=== PATIENT | female | born 1955 ===

== ENCOUNTER → 2025-09-21 11:18 | Outpatient (BNV) | payer OTHER, SELFPAY | PROVIDERS: Emergency Provider Emergency Medicine; PCP Pediatrics; Visit Provider Radiology Diagnostic Radiology | DX: R07.9 Chest pain, unspecified (principal); R06.02 Shortness of breath | CPT/HCPCS: 71046 ==

== ENCOUNTER 2025-09-21 11:47 | Emergency (ER) | payer OTHER, SELFPAY ==
--- NOTE | 2025-09-21 | ECG_ITS ---
Test Reason : chest pain Blood Pressure : */* mmHG Vent. Rate : 50 BPM Atrial Rate : 50 BPM P-R Int : 120 ms QRS Dur : 70 ms QT Int : 448 ms P-R-T Axes : 68 43 52 degrees QTcB Int : 408 ms Sinus bradycardia with sinus arrhythmia Otherwise normal ECG No previous ECGs available Referred By: Generic ED Physician Electronically Signed By: MARIALUISA BENITEZ MD
--- NOTE | ~2025-09-21 | XR_ITS ---
EXAMINATION: XR CHEST CLINICAL INFORMATION: chest pain, SOB COMPARISON: None available. TECHNIQUE: 2 views of the chest were obtained. FINDINGS: There is linear scarring or subsegmental atelectasis at the left lung base. Lungs are otherwise clear. No consolidation or pulmonary edema. No pleural effusion or pneumothorax. Cardiac and mediastinal contours are normal. Degenerative changes of the spine and shoulders. XR/XR chest 2V IMPRESSION: Linear subsegmental atelectasis or scarring at the left lung base. Electronically signed by: Keely Hunt MD 09/21/2025 12:28 PM VIVEK
[2025-09-21 11:54] VITALS: BP 130/75; PULSE 66; O2SAT 96
[2025-09-21 11:56] VITALS: BP 150/64; PULSE 56; RESP 18; TEMP 37; O2SAT 95; BMI 24.1
[2025-09-21 12:17] LABS: MANUAL DIFF FLAG NO
[2025-09-21 12:18] LABS: Hematocrit 41.0 % (37.0-47.0); Hemoglobin 13.7 g/dl (12.0-16.0); Imm Gran Abs Auto 0.01 X10*3/uL (0.00-0.03); Imm Gran Pct Auto 0.2 % (0.0-0.4); Lymphocytes Absolute Auto 1.1 X10*3/uL (1.2-4.9); Mean Corpuscular HGB Conc 33.4 g/dl (31.0-35.0); Mean Corpuscular Hemoglobin 30.9 pg (27.0-33.0); Mean Corpuscular Volume 92.3 fL (80.0-98.0); NRBC Abs Auto 0.000 X10*3/uL (0.0-0.012); NRBC Pct Auto 0.0 /100WBC (0.0-0.2); Platelet Count 243 X10*3/uL (160-400); Red Blood Count 4.44 X10*6/uL (4.20-5.50); White Blood Count 5.6 X10*3/uL (4.8-10.8)
[2025-09-21 12:24] LABS: INTERNATIONAL NORM RATIO 1.0 (0.9-1.1); Prothrombin Time 12.8 SEC (11.2-13.5)
[2025-09-21 12:31] LABS: Anion Gap 11 (12-20); Blood Urea Nitrogen 16 mg/dL (9-16); Calcium 9.1 mg/dL (8.4-10.2); Carbon Dioxide 28 mmol/L (22-29); Chloride 107 mmol/L (96-108); Creatinine Clr Calc Pharmacy 71.3; Estimated Glomerular Filt Rate > 60; Potassium 4.7 mmol/L (3.3-5.1); Sodium 141 mmol/L (135-145)
[2025-09-21 12:43] LABS: Troponin-I High Sensitivity < 2.7 ng/L (<3.5-17.0)
--- NOTE | 2025-09-21 13:58 | ED.CHESTPAIN ---
HPI - Chest Pain General Chief Complaint: Chest Pain Stated Complaint: R CP W/BREATHING X2D,ASA & NITRO GIVEN Time Seen by Provider: 09/21/25 12:08 Source: patient, EMS, RN notes reviewed and old records reviewed Mode of arrival: EMS Limitations: language barrier (Brazilian-speaking) History of Present Illness ED Provider: JV Hooper HPI narrative: 69-year-old female with medical history of HLD, HTN, [place] with stent placement at [facility] presents to ED by EMS due to right sided chest pain after a flat screen TV fell onto the R side of her chest 5 days ago. Patient states she was able to let the TV fall to the side so it did not fall on top of her/crush her, but did hit the right side of her chest very hard. Patient stated she noticed some chest pain in this area after but the chest pain is now worse and she has pain when raising the right arm up, and when taking a deep breath in around the area of impact. Denies SOB, difficulty breathing, abdominal pain, nausea, vomiting, lightheadedness, dizziness Related Data Allergies Allergy/AdvReac Type Severity Reaction Status Date / Time Bleach (Sodium Hypochlorite) AdvReac Intermediate Itching Verified 09/21/25 12:05 Review of Systems Review of Systems: Yes all other systems are reviewed and are negative PMFSH Past Medical History Attestation statement: The following information was validated with the patient. Source: old records reviewed and nursing notes reviewed Social History Social History Advance Directives: No Advance Directives Information Provided: Yes Physical Exam Vital Signs: Vital Signs: Last Vital Signs Temp 98.6 F 09/21/25 15:39 Pulse 69 09/21/25 15:39 Resp 17 09/21/25 15:39 BP 163/76 H 09/21/25 15:39 Pulse Ox 96 09/21/25 15:39 O2 Del Method Room Air 09/21/25 15:39 BMI result Body Mass Index 24.1 GENERAL APPEARANCE: ?AxOx4, generally well-appearing, no acute distress. HEENT: ?NC, AT. MMM. EOMI, clear conjunctiva, oropharynx clear. NECK: ?Supple without lymphadenopathy.? No stiffness or restricted ROM. HEART:? Normal rate and regular rhythm, normal S1/S2, no m/r/g. Patient without ecchymosis or overlying skin changes over the R side chest wall, patient TTP over right pectoralis major muscle, this pain is exacerbated when patient raises her arm up, no flail chest noted, no tenderness over right-sided ribs LUNGS:? CTAB, moving air well. No crackles or wheezes are heard. ABDOMEN: ?Soft, nontender, nondistended with good bowel sounds heard. BACK: No CVAT, no obvious deformity. EXTREMITIES: ?Without cyanosis, clubbing or edema. NEUROLOGICAL: ?Grossly nonfocal. Alert and oriented, moving all 4 extremities. Observed to ambulate with normal gait. Skin: ?Warm and dry without any rash. Medical Decision Making Medical Decision Making MDM Narrative: 69-year-old female with medical history of HLD, HTN, [place] with stent placement at [facility] presents to ED by EMS due to right sided chest pain after a flat screen TV fell onto the R side of her chest 5 days ago. Patient states she was able to let the TV fall to the side so it did not fall on top of her/crush her, but did hit the right side of her chest very hard. Patient stated she noticed some chest pain in this area after but the chest pain is now worse and she has pain when raising the right arm up, and when taking a deep breath in around the area of impact Nursing reports there was some misunderstanding while patient was in the ambulance as they were using a phone assistant clinical nurse manager, and ended up giving the patient nitro and aspirin while in route as they thought this was a new onset chest pain. Upon speaking with the patient, the chest pain has been present since the TV fell on her but she is concerned as she is still experiencing pain when moving the R arm above her head and she can still feel the bruised area when taking a deep breath in. VS on initial observation-BP 150/64, pulse rate of 56, respiratory rate of 18, afebrile with oral temp of 98.6, O2 saturation 95 percent on room air. On physical exam patient is very well-appearing, in no acute distress, nontoxic appearing frequently talking on her phone, laughing, and able to move about the stretcher without pain. Lungs are clear to auscultation bilaterally, cardiac exam reveals normal rate and rhythm without murmurs/rubs/gallops, chest wall without ecchymosis, overlying skin changes TTP over a small area of the right chest where the TV fell onto her, increased pain when rising the right arm above her head or when I am pushing in the area over her chest, abdomen is soft, nondistended, no rigidity and nontender Labs unremarkable EKG reveals sinus bradycardia, without significant ST-elevation/depression, initial troponin was undetectable <2.7 CXR reveals degenerative changes of spine and shoulders, with atelectasis/scarring of the left lung base Patient presents with 5 days of right-sided chest pain that began after a flat screen TV fell onto the patient with pain when moving the arm up overhead, taking a deep breath causing pain over the area that the TV fell on. Patient keeps massaging the area of impact stating that is the area causing her pain. Her chest pain is not associated with diaphoresis, nausea, vomiting, lightheadedness, dizziness, does not radiate anywhere. At this time I believe her symptoms are most likely due to rib contusion from the TV falling onto this area. Patient to be discharged home for self-care I instructed patient to take Tylenol and ibuprofen for pain relief, and use ice over the affected area. I counseled patient to follow up with her primary care doctor. Patient is in agreement with the plan. Differential Diagnosis Differential Diagnoses: The differential diagnosis associated with the presentation includes Dysrhythmia Rib fracture Rib dislocation Rib contusion Admission/Observation Consideration of admission/observation: Escalation of care including admission/observation considered Lab Data MDM Lab Attestation statement: I reviewed the patient's lab results. 09/21/25 12:07 09/21/25 12:07 Labs: Lab Results 09/21/25 Range/Units 12:07 WBC 5.6 (4.8-10.8) X10*3/uL RBC 4.44 (4.20-5.50) X10*6/uL Hgb 13.7 (12.0-16.0) g/dl Hct 41.0 (37.0-47.0) % MCV 92.3 (80.0-98.0) fL MCH 30.9 (27.0-33.0) pg MCHC 33.4 (31.0-35.0) g/dl RDW 12.6 (11.0-16.0) % Plt Count 243 (160-400) X10*3/uL MPV 9.9 (9.4-12.3) fL Immature Gran % (Auto) 0.2 (0.0-0.4) % Neut % (Auto) 65.6 (45-73) % Lymph % (Auto) 19.5 L (20-40) % Charlton % (Auto) 8.6 (2-11) % Eos % (Auto) 5.0 H (0-4) % Baso % (Auto) 1.1 (0-2) % Lymph # (Auto) 1.1 L (1.2-4.9) X10*3/uL Charlton # (Auto) 0.5 (0.1-1.2) X10*3/uL Eos # (Auto) 0.3 (0.0-0.4) X10*3/uL Baso # (Auto) 0.1 (0.0-0.2) X10*3/uL Abs Immat Gran (auto) 0.01 (0.00-0.03) X10*3/uL Absolute Neuts (auto) 3.7 (2.0-8.3) x10*3/uL Absolute Nucleated RBC 0.000 (0.0-0.012) X10*3/uL Nucleated RBC % (auto) 0.0 (0.0-0.2) /100WBC PT 12.8 (11.2-13.5) SEC INR 1.0 (0.9-1.1) Sodium 141 (135-145) mmol/L Potassium 4.7 (3.3-5.1) mmol/L Chloride 107 (96-108) mmol/L Carbon Dioxide 28 (22-29) mmol/L Anion Gap 11 L (12-20) BUN 16 (9-16) mg/dL Creatinine 0.60 (0.5-1.4) mg/dL Estim Creat Clear Calc 71.3 Estimated GFR > 60 Random Glucose 87 (60-115) mg/dL Calcium 9.1 (8.4-10.2) mg/dL Total Bilirubin 0.9 (0.0-1.0) mg/dL Direct Bilirubin 0.3 (0.0-0.5) mg/dL AST 22 (5-31) U/L ALT 12 (0-31) U/L Alkaline Phosphatase 64 (39-117) U/L Troponin I High Sens < 2.7 (<3.5-17.0) ng/L Total Protein 6.6 (6.5-8.0) g/dL Albumin 4.3 (3.5-5.0) g/dL Lipase 15 (8-78) U/L Independent Interpretation I performed an independent interpretation of an: EKG and Plain X-Ray Interpretation: I personally interpreted the EKG which reveals sinus bradycardia, sinus arrhythmia, no significant ST elevation/depression Vent. Rate : 50 BPM Atrial Rate : 50 BPM P-R Int : 120 ms QRS Dur : 70 ms QT Int : 448 ms P-R-T Axes : 68 43 52 degrees QTcB Int : 408 ms Sinus bradycardia with sinus arrhythmia Otherwise normal ECG No previous ECGs available I personally interpreted the CXR which was negative for cardiomegaly, pneumothorax, pleural effusion, fractured ribs, I agree with the radiologist's interpretation Radiology Impression Discussion of test interpretation with radiology: I have reviewed the radiologist's reading. Radiologist Impression: CXR FINDINGS: There is linear scarring or subsegmental atelectasis at the left lung base. Lungs are otherwise clear. No consolidation or pulmonary edema. No pleural effusion or pneumothorax. Cardiac and mediastinal contours are normal. Degenerative changes of the spine and shoulders. XR/XR chest 2V IMPRESSION: Linear subsegmental atelectasis or scarring at the left lung base. Electronically signed by: Keely Hunt MD 09/21/2025 12:28 PM [facility] Dictated By: Keely Hunt MD Signed By: <Electronically signed by Keely Hunt MD in OV> 09/21/25 1228 Independent Historian Clinical information obtained from an independent historian. History obtained from or confirmed by: EMS External Record Review External record reviewed: Inpatient record, Office record and Outpatient record Chronic Conditions Patient?s care impacted by: Hypertension and Other (HLD) Discharge Plan Discharge Clinical Impression: Chest wall contusion Patient Disposition: Home, Self-Care Instructions: Chest Contusion (ED) Additional Instructions: You were evaluated in the ED today due to right-sided chest pain after a TV fell onto this area 5 days ago. Your EKG revealed a slow heart rate, but no emergent findings. Your troponin which is a protein of the heart gives off when under stress or damage was negative. Your chest x-ray was negative for fracture, dislocation, or any emergent findings. You have pain in this area when I push around the area of impact. Your symptoms are most likely due to a bruise of your chest wall where the TV fell onto. To manage pain at home please take 500 milligrams of Tylenol, 400 milligrams of ibuprofen every 6 hours. You can apply ice over the affected area, and practice gentle stretching while this area heals. Please follow up with your primary care doctor to ensure resolution of your symptoms Please return to the emergency department if you have worsening pain, difficulty breathing, shortness of breath, chest pain radiating to any other parts of your body, abdominal pain, nausea, vomiting or any new/worsening/concerning symptoms. Print Language: Brazilian
[2025-09-21 14:41] LABS: Alanine Aminotransferase 12 U/L (0-31); Albumin Level 4.3 g/dL (3.5-5.0); Alkaline Phosphatase 64 U/L (39-117); Aspartate Amino Transferase 22 U/L (5-31); Lipase 15 U/L (8-78); Total Protein 6.6 g/dL (6.5-8.0)
[2025-09-21 15:39] VITALS: BP 163/76; PULSE 69; RESP 17; TEMP 37; O2SAT 96
--- OUTSIDE RECORDS SUMMARY | 2025-09-21 15:51 | XMS_ITS | Data Portability ---
Author Organization [facility], [facility] Address [address] [place] [phone] Care Team Providers Care Disbursement Clerk Name Role Phone HIM [facility] OTHER Assessment Encounter Date Assessment Date Assessment LastModified by Organization Details LastModified Time 11/30/2024 11/30/2024 Impression: 68yo/f with multiple medical problems as above referred for complaint of urinary symptoms, patient also found to be having abdominal pain and focal tenderness. Patient is 68, states began feeling unwell approximately 3 days ago. Having some discomfort with urination, some hematuria, and now today some nausea/vomiting, lower abdominal discomfort. For medic in home she is awake, alert, in no distress but mildly uncomfortable due to abdominal pain, hypertensive to 180s systolic. No associated chest pain, midline back pain at this time. No associated dyspnea, no associated neurologic symptoms. However on medic exam patient has focal tenderness in the right lower quadrant. Plan: Initial call with concerns for UTI, however on medic eval patient has lower abdominal pain and focal tenderness. Urine with neg leuks and nitrite, trace blood and protein, otherwise unremarkable. Labs are otherwise WNL. Unclear etiology of her symptoms, no known history of kidney stones, given her symptoms and physical exam findings I believe she merits in person ED evaluation and consideration of CT imaging. Update: Received notification from certified forklift operator that patient refusing ED transport at this time. She is awake, alert, able to state she understands risks and benefits involved in her decision making and has capacity to make her own decisions at this time. She will be discharged from visit against medical advice. Primary care, consider followup LIBIA Disposition: We discussed the situation and I recommended referral to the emergency department. [email or web address] Not available 11/30/2024 15:57:37 Plan of Treatment Reminders Order Date Submit Date Provider Last Modified By Organization Details Last Modified Time Details Appointments None recorded. Lab BMP, serum or plasma [address] [facility], [address] [place] [address], [id number] 5 14:44:45 urinalysis , dipstick 2024 [address]25 [address] [facility], [address] [place] [address], [id number] 5 14:44:45 Referral None recorded. Procedures None recorded. Surgeries None recorded. Imaging None recorded. Medication Orders None recorded. Patient TargetsNo targets recorded. Patient InstructionsNo instructions recorded. Reason for Referral None Reported. Results Created Date Observation Date Name Description Value Unit Range Abnormal Flag Note LastModifiedBy Organization Detail LastModifiedTime Result Notes None recorded. Medical Equipment None Reported. Allergies No known drug allergies Medications Name Sig Start Date Stop Date Status Note LastModified by Organization Details LastModified Time atorvastatin 40 mg tablet active Not Available Not Available No t Available albuterol sulfate 2.5 mg/3 mL (0.083 %) solution for nebulization active Not Available Not Available Not Available IBU 800 mg tablet active Not Available Not Available Not Available polyvinyl alcohol 1.4 % eye drops active Not Available Not Availa ble Not Available citalopram 20 mg tablet active Not Available Not Available Not Available pantoprazole 40 mg tablet,delayed release active Not Available Not Available Not Available lisinopril 5 mg tablet active Not Available Not Available Not Available loratadine 10 mg tablet active Not Available Not Available Not Available Ventolin HFA 90 mcg/actuation aerosol inhaler active Not Available Not Availa ble Not Available mirtazapine 7.5 mg tablet active Not Available Not Available No t Available Asmanex Twisthaler 220 mcg/actuation(60 doses) breath activated inhalr active Not Available Not Avail able Not Available cholecalciferol (vitamin D3) 50 mcg (2,000 unit) capsule active Not Available Not Available Not Available Vitals Date Recorded Body temperature Heart rate Body weight Oxygen saturation Oxygen saturation in Arterial blood by Pulse oximetry Respiratory rate Body height Systolic And Diastolic Provider Name and Address Organization Details Last Updated DateTime 5 98.9 [degF] 60 /min 30602.9 6 g 97 % 97 % 18 /min 147.32 cm 183/79 mm[Hg] Not Available [facility] - production 5 14:39:54 Social History None recorded. Functional Status None recorded. Mental Status None recorded. Family History Nothing Reported. Medical History No medical history recorded. Gynecological HistoryNo gynecological history recorded. Obstetrics History GPAL:G 0 P 0 0 0 0 Past Encounters Encounter ID Performer Location Encounter Start Date Encounter Closed Date Diagnosis/Indication Diagnosis SNOMED-CT Code Diagnosis ICD10 Code Diagnosis IMO Codes Diagnosis Note [id number] Tung Campbell MD Main - [address] [phone] 11/30/2024 14:39:48 11/30/2024 19:07:20 Abdominal pain 15933466 R10.9 Health Concerns Section Related Observation LastModified by Organization Detai ls LastModified Time None Recorded Concern Status LastModified by Organization Details LastModified Time None Recorded Advance Directives Directive None Recorded Payers Insurance Date Sequence Insurance Name Policy Number Policy Louis Covered Member ID Louis Member ID Guarantor Name 11/30/2024 1 [facility] - DOS ON OR AFTER 2023 - DUAL ELIGIBLE - [facility] OPT[employer] AND ONE [employer] (MEDICARE REPLACEMENT/ADV ANTAGE - HMO) Flores Bernstein [id number] Flores Bernstein Notes Date Note Type Note Provider Name and Address Organization Details Recorded Time 11/30/2024 text/html ROS as noted in the HPI CRC Nurse Triage Notes (Sanjana Cha - BRIGIDA): Reason For Request: Possible uti. Patient Reports: Painful urination; Frequent and increased urination with flank pain; Painful urination with or without fever; Inability to fully empty bladder Denies: Unable to void greater than 5 hours Erection that will not go away after 2 hours Fall or trauma that results in urinary incontinence in the setting of pain Fall or injury that results in incontinence in the absence of pain Lower back pain either unilateral or bilateral, unable to void, painful urination -hematuria Chief Complaints: Urinary symptoms PMH: Anxiety Disorder, Depression, Rheumatoid Arthritis, Substance Use Disorder, Severe Persistent Mental Illness (SPMI) PMH Reviewed at 11/30/2024 - : Allergies Reviewed at 11/30/2024 - :30 Comments: Fire Truck Driver verified the name//address and phone number. PT nurse calling. Pt is having UTI symptoms. She has urgency, flank pain, urine is yellow with blood. She has increased frequency and burning. Pt denies any fever/ chills/ vomiting with mild nausea. 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 [address]: [address] [place] [phone], Mild Disabilities Teacher: Regis Lawrence MD CLIA No.: [id number] Forge Shop Machine Repairer POC Test Results from [employer] iSTAT Chem8+ (14:28:07) Na: 138 mEq/L K: 4.0 mEq/L Cl: 100 mEq/L iCa: 1.17 mmol/L TCO2: 28 mmol/L Glu: 90 mg/dL BUN: 19 mg/dL Crea: 0.8 mg/dL Hct: 45 % Hb: 15.3 g/dL A Attachments uploaded as part of this test result can be found under Documents section. Urine Dipstick (14:28:09) Urine leukocytes: - CALI Urine nitrites: - NIT Urine urobilinogen: 0.2 URO Urine protein: 15+/- PRO Urine pH: 5.0 pH Urine blood: +/- BLO Urine specific gravity: 1.020 SG Urine ketones: - KET Urine bilirubin: - MILO Urine glucose: - GLU .................. .................. .................. .................. .................. .................. .................. ............... 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 SC8 arrives on scene, pt is alert and oriented, airway is patent. Pt complains of abbasi, dizziness when sitting/standing, RLQ/LLQ abd pain, nausea, dysuria, and hematuria x 3 days, and feeling hot/chills yesterday. Pt denies cp, sob, vomiting, or diarrhea. (sitting) BP:183/79, P:60, RR:18, SpO2:97% RA, T:98.9; (standing) BP:161/85, P:67; Head: unremarkable; Lung sounds: clear bilaterally; Abdomen: soft, RLQ tenderness, no distention; Back: no CVA tenderness; Extremities: unremarkable; Skin: pink, warm, dry; Urine sample obtained; Results: uploaded to [employer]; IV access/venous blood draw performed; Chem8+ results: uploaded to [employer]. [facility] [place] and pt is advised she should be transported to ED for further eval/treatment. Pt refuses transport stating she doesn't have anyone to watch her dogs. Risks of refusing transport explained. Pt states she understands the risks. Pt states she will contact her PCP to request outpt CT. Pt signs refusal form. IV removed; Red flags discussed. Pt has no further questions. .................. .................. .................. .................. .................. .................. .................. ............... [facility] Consulted: Tung Campbell .................. .................. .................. .................. .................. .................. .................. ............... Disposition: Fulfilled Tugn Campbell MD [address] [facility],[address], [place], [phone], NORA - Dana Translation, SADIE 11/30/2024 15:57:48 OBGyn Episode No OBEpisode recorded.
--- OUTSIDE RECORDS SUMMARY | 2025-09-21 15:51 | XMS_ITS | Encounter Summary ---
Author Organization [employer] Address [address] [facility] [address] [place] [address] Care Team Providers Care Vp Strategic Partnerships Name Role Phone Clover Israel MD Primary Care Provider [phone] Reason for Visit * Reason Onset Date Comments Appointment Request 01/30/2025 Encounter Details Date Type Department Care Team ([facility] st Contact Info) Description 01/30/2025 Telephone [facility] [address], [place] [phone] Clover Israel MD [address] [place], [place] [phone] Appointment Request Social History Tobacco Use Types Packs/Day Years Used Date Smoking Tobacco: Every Day Cigarettes Smokeless Tobacco: Never Comments:Smokes an average o f 2 cig a day. Used to smoke 1 ppd until last year. Depression Answer Date Recorded Patient Health Questionnaire-9 Score 2 01/13/2024 Patient Health Questionnaire-9 Score 2 01/13/2024 Last PHQ-9: Questionnaire Data Not on file 0 01/13/2024 Housing Stability Answer Date Recorded What is your housing situation today? I have musa olson 08/25/[address] you li ve. Do you have problems with any of the following? Mold 08/25/2023 Food Insecurity Answer Date Recorded Within the past 12 months, y ou worried that your food would run out before you got money to buy more: Never True 08/25/2023 Within the past 12 months,th e food you bought just didn't last and you didn't have enough money to get more: Never True Transportation Answer Date Recorded In the past 12 months, has l ack of transportation kept you from medical appts, meetings, work or from getting things needed for daily living? Yes, it has kept me from medical appointments or getting medications. 08/25/2023 Utilities Answer Date Recorded In the past 12 months, has t he electric, gas, oil or water company threatened to shut off services in your home? No 08/25/2023 Depression Answer Date Recorded Patient Health Questionnaire-2 Score 2 01/13/2024 Comments Unknown Sex and Gender Information Value Date Recorded Sex Assigned at Female 09/08/2022 10:16 AM EDT Legal Sex Female 10:16 AM EDT Gender Identity Female 09/08/2022 10:16 AM EDT Sexual Orientation Straight 09/08/2022 10 :16 AM EDT documented as of this encounter Miscellaneous Notes * Telephone Encounter - Arianna Pettit - 01/30/2025 11:43 AM EDT Tc from [place] with [facility] requesting a call back to schedule OV Extended. Pt las annual 09/03/23 (Pt) documented in this encounter Plan of Treatment Upcoming Encounters Date Type Department Care Team (Late st Contact Info) Description 09/25/2025 10:15 AM EST Office Visit [facility] [address] [place] [address] Markos Mccoy MD [address] [place] [phone] 10/23/2025 10:00 AM EST Office Visit [facility] [address] [place] [address] Markos Mccoy MD [address] [place] [phone] documented as of this encounter Visit Diagnoses Not on filedocumented in this encounter Additional Health Concerns Assessment Noted Time PHQ-9 Depression Total Score: 2 01/13/20 24 11:32 AM EST documented as of this encounter Care Teams Vp Strategic Partnerships Relationship Specialty Start Date End Date Clover Israel MD [address] [place] [address] PCP - General Family Medicine 09/29/16 documented as of this encounter
--- OUTSIDE RECORDS SUMMARY | 2025-09-21 15:51 | XMS_ITS | Encounter Summary ---
Author Organization [facility] [employer] [employer] Address [address] [place] [address] 7 [place] [address] Care Team Providers Care Manager Home Name Role Phone Clover Israel MD Primary Care Provider [phone] Reason for Visit * Reason Onset Date Comments Housing Assistance 06/08/2023 Encounter Details Date Type Department Care Team ([facility] Contact Info) Description 06/08/2023 Telephone [facility]ED[facility] [address] [place], [place] [phone] Clover Israel MD 505 [place], [place] [phone] Housing Assistance Social History Tobacco Use Types Packs/Day Years Used Date Smoking Tobacco: Every Day Cigarettes Smokeless Tobacco: Never Comments:Smokes an average o f 2 cig a day. Used to smoke 1 ppd until last year. Comments Unknown Sex and Gender Information Value Date Recorded Sex Assigned at Female 09/08/2022 10:16 AM EDT Legal Sex Female 10:16 AM EDT Gender Identity Female 09/08/2022 10:16 AM EDT Sexual Orientation Straight 09/08/2022 10 :16 AM EDT documented as of this encounter Plan of Treatment Upcoming Encounters Date Type Department Care Team ([facility] Contact Info) Description 09/25/2025 10:15 AM EST Office Visit [facility] [address] [place] [address] Markos Mccoy MD [address] [place] [address] 10/23/2025 10:00 AM EST Office Visit [facility] [address] [place] [address] Markos Mccoy MD [address] [place] [address] documented as of this encounter Visit Diagnoses Not on filedocumented in this encounter Care Teams Manager Home Relationship Specialty Start Date End Date Clover Israel MD [address] [place] [address] PCP - General Family Medicine 09/29/16 documented as of this encounter
--- OUTSIDE RECORDS SUMMARY | 2025-09-21 15:51 | XMS_ITS | Encounter Summary ---
Author Organization [employer] Address [address] [facility] 7t [place] [address] Care Team Providers Care Flute Polisher Name Role Phone Clover Israel MD Primary Care Provider [phone] Reason for Visit * Reason Onset Date Comments Appointment Request 07/06/2023 Encounter Details Date Type Department Care Team (Late Contact Info) Description 07/06/2023 Telephone [facility] [address] [place], [place] [phone] Clover Israel MD 505 [place], [place] [phone] Appointment Request Social History Tobacco Use Types [...] encounter Miscellaneous Notes * Telephone Encounter - Maria Alejandra Mackey - 07/06/2023 3:50 PM EDT Tc from pt requesting an appt with provider for a physical due to not seeing provider in a year. Please contact pt at [phone] Greek Speaker documented in this encounter Plan of Treatment Upcoming Encounters Date Type Department Care Team (Late Contact Info) Description 09/25/2025 10:15 AM EST Office Visit [facility] MED & PEDS [address] [place] [address] Markos Mccoy MD [address] [place] [address] 10/23/2025 10:00 AM EST Office Visit [facility] MED & PEDS [address] [place] [address] Markos Mccoy MD [address] [place] [address] documented as of this encounter Visit Diagnoses Not on filedocumented in this encounter Care Teams Flute Polisher Relationship Specialty Start Date End Date Clover Israel MD 505 [place] [address] PCP - General Family Medicine 09/29/16 documented as of this encounter
--- OUTSIDE RECORDS SUMMARY | 2025-09-21 15:51 | XMS_ITS | Encounter Summary ---
Author Organization [employer] Address [address] [facility] 7t [place] [address] Care Team Providers Care Cone Runner Name Role Phone Clover Israel MD Primary Care Provider [phone] Reason for Visit * Reason Onset Date Comments Durable Medical Equipment 05/03/2025 Encounter Details Date Type Department Care Team ([facility] st Contact Info) Description 05/03/2025 Telephone [facility] MEDICINE [address] [place], [place] [phone] Clover Israel MD [address] [place], [place] [phone] Durable Medical Equipment Social History Tobacco Use Types Packs/Day Years Used Date Smoking Tobacco: Every Day Cigarettes Smokeless Tobacco: Never Comments:Smokes an average o f 2 cig a day. Used to smoke 1 ppd until last year. Depression Answer Date Recorded Patient Health Questionnaire-9 Score 21 03/22/2025 Patient Health Questionnaire-9 Score 21 03/22/2025 Last PHQ-9: Questionnaire Data Not on file 0 03/22/2025 Housing Stability Answer Date Recorded What is your housing situation today? I have musa olson 03/22/[address] you li ve. Do you have problems with any of the following? Pests such as bugs, ants, or mice;Lead [place] [employer] 03/22/2025 Food Insecurity Answer Date Recorded Within the past 12 months, y ou worried that your food would run out before you got money to buy more: Never True 03/22/2025 Within the past 12 months,th e food you bought just didn't last and you didn't have enough money to get more: Never True Transportation Answer Date Recorded In the past 12 months, has l ack of transportation kept you from medical appts, meetings, work or from getting things needed for daily living? No 03/22/2025 Utilities Answer Date Recorded In the past 12 months, has t he electric, gas, oil or water company threatened to shut off services in your home? No 03/22/2025 Depression Answer Date Recorded Patient Health Questionnaire-2 Score 6 03/22/2025 Internet Access Answer Date Recorded Internet Access Q1 Yes 03/22/2025 Internet Access Q2 Not on file 03/22/2025 Comments Unknown Sex and Gender Information Value Date Recorded Sex Assigned at Female 09/08/2022 10:16 AM EDT Legal Sex Female 10:16 AM EDT Gender Identity Female 09/08/2022 10:16 AM EDT Sexual Orientation Straight 09/08/2022 10 :16 AM EDT documented as of this encounter Miscellaneous Notes * Telephone Encounter - Beth Ruggiero LPN - 05/08/2025 12:58 PM EDT Please review Pt request below and advise, provider DX will not be covered. Tc from [place] with [facility] requesting: - Shower Chair - Rollator Walker Reason: Back pain, leg swelling * Telephone Encounter - Arianna Pettit - 05/03/2025 11:55 AM EDT Tc from [place] with [facility] requesting: - Shower Chair - Rollator Walker Reason: Back pain, leg swelling documented in this encounter Plan of Treatment Upcoming Encounters Date Type Department Care Team (Late st Contact Info) Description 09/25/2025 10:15 AM EST Office Visit [facility] MED & PEDS 505 [place] [address] Markos Mccoy MD [address] [place] [address] 10/23/2025 10:00 AM EST Office Visit [facility] MED & PEDS 505 [place] [address] Markos Mccoy MD 230 [place] [address] documented as of this encounter Visit Diagnoses Not on filedocumented in this encounter Additional Health Concerns Assessment Noted Time PHQ-9 Depression Total Score: 21 025 11:11 AM EDT documented as of this encounter Care Teams Cone Runner Relationship Specialty Start Date End Date Clover Israel MD [address] [place] [address] PCP - General Family Medicine 09/29/16 documented as of this encounter
--- OUTSIDE RECORDS SUMMARY | 2025-09-21 15:51 | XMS_ITS | Encounter Summary ---
Author Organization [employer] Address [address] [facility] [address] 7t [place] [address] Care Team Providers Care Interpreter Name Role Phone Clover Israel MD Primary Care Provider [phone] Reason for Visit * Reason Onset Date Comments ER Follow-up 11/03/2023 Encounter Details Date Type Department Care Team ([facility] st Contact Info) Description 11/03/2023 Telephone [facility] MEDICINE [address] [place] [address] Clover Israel MD [address] [place], [place] [phone] ER Follow-up Social History Tobacco Use Types Packs/Day Years Used Date Smoking Tobacco: Every Day Cigarettes Smokeless Tobacco: Never Comments:Smokes an average o f 2 cig a day. Used to smoke 1 ppd until last year. Housing Stability Answer Date Recorded What is your housing situation today? I have musalibrado olson 08/25/[address] you [...] off services in your home? No 08/25/2023 Comments Unknown Sex and Gender Information Value Date Recorded Sex Assigned at Female 09/08/2022 10:16 AM EDT Legal Sex Female 10:16 AM EDT Gender Identity Female 09/08/2022 10:16 AM EDT Sexual Orientation Straight 09/08/2022 10 :16 AM EDT documented as of this encounter Miscellaneous Notes * Telephone Encounter - Leigh Hunt RN - 11/03/2023 10:46 AM EST Pt dischsrged from [facility] on 10/29/23 for NSTEMI. Returned call to pt CAR JOCKEY and CAR JOCKEY agrees to HDF appt with provider on 11/13/23. CAR JOCKEY states besides minimal dizziness at times, pt denies any CP or other concerns. CAR JOCKEY advised to call office if there are any further questions or concerns or return to ED if pt develops SOB or CP. * Telephone Encounter - Cosme Toledo - 11/03/2023 10:15 AM EST Tc from patients CAR JOCKEY calling to make appt please call Desiree at [phone] Patient calling to report ED visit on : 11/03 Date: 10/27 Hospital: [facility] Seen for: Heart Attack Patient advised will forward to team nurse for follow up documented in this encounter Plan of Treatment Upcoming Encounters Date Type Department Care Team (Late st Contact Info) Description 09/25/2025 10:15 AM EST Office Visit [facility] MED & PED[facility] [address] [place] [address] Markos Mccoy MD [address] [place] [address] 10/23/2025 10:00 AM EST Office Visit [facility] [address] [place] [address] Markos Mccoy MD [address] [place] [address] documented as of this encounter Visit Diagnoses Not on filedocumented in this encounter Care Teams Interpreter Relationship Specialty Start Date End Date Clover Israel MD 505 [place] [address] PCP - General Family Medicine 09/29/16 documented as of this encounter
--- OUTSIDE RECORDS SUMMARY | 2025-09-21 15:51 | XMS_ITS | Encounter Summary ---
Author Organization [employer] Address [address] [facility] 7t [place] [address] Care Team Providers Care Locomotive Supervisor Name Role Phone Clover Israel MD Primary Care Provider [phone] Reason for Visit * Reason Onset Date Comments med request 02/13/2025 Encounter Details Date Type Department Care Team ([facility] st Contact Info) Description 02/13/2025 Telephone [facility] MEDICINE 230 [place], [place] [phone] Clover Israel MD [address] [place], [place] [phone] med request Social History Tobacco Use Types Packs/Day Years [...] encounter Miscellaneous Notes * Telephone Encounter - Silvia Estrada RN - 02/14/2025 10:17 AM EDT TC to pt using interpreter deaf services. Pt answered phone and stated she was shopping at grocery store. Pt stated feeling fine, stated taking wrong medication couple days ago, visiting nurse came to house and said would ask PCP for med box. Pt expressed wanting medication boxes. Pt denies any symptoms of dizziness or confusion. Author advised if pt has future questions to contact office. Pt verbalized understating and agreement with plan. * Telephone Encounter - Silvia Estrada RN - 02/13/2025 3:40 PM EDT TC to [facility] [place] to obtain information if wrong medication was taken just now, or if historical event, and to see if pt is still experiencing symptoms. Spoke with sales department supervisor Shea who stated that Christin is not a nurse she is familiar with at all adult day health locations of [facility] and believes Christin is home care nurse and Shea stated will notify sales department supervisor of home care to reach out to office. Office phone number given. * Telephone Encounter - Rocky De La Cruz - 02/13/2025 2:42 PM EDT Tc from [place] with [facility] notifying pt recently took the wrong medication by mistake and experienced symptoms such as dizziness and confusion. Christin to help prevent this from happening again and to ensure medication safety requests that future medications be provided in bubble packs. If any questions please contact [phone] documented in this encounter Plan of Treatment Upcoming Encounters Date Type Department Care Team (Late st Contact Info) Description 09/25/2025 10:15 AM EST Office Visit [facility] MED & PEDS 505 [place] [address] Markos Mccoy MD 230 [place], [place] [phone] 10/23/2025 10:00 AM EST Office Visit [facility] MED & PEDS 505 [place] [address] Markos Mccoy MD [address] [place] [address] documented as of this encounter Visit Diagnoses Not on filedocumented in this encounter Additional Health Concerns Assessment Noted Time PHQ-9 Depression Total Score: 2 01/13/20 24 11:32 AM EST documented as of this encounter Care Teams Locomotive Supervisor Relationship Specialty Start Date End Date Clover Israel MD 505 [place] [address] PCP - General Family Medicine 09/29/16 documented as of this encounter
--- OUTSIDE RECORDS SUMMARY | 2025-09-21 15:51 | XMS_ITS | Encounter Summary ---
Author Organization [employer] Address [address] [place] [address] 7t [place] [address] Care Team Providers Care Collections Agent Name Role Phone Clover Israel MD Primary Care Provider [phone] Reason for Visit * Reason Comments Med Refill Encounter Details Date Type Department Care Team ([facility] Contact Info) Description 07/04/2023 Refill [facility] MEDICINE [address] [place] [address] [phone] Clover Israel MD [address] [place], [place] [phone] Social History Tobacco Use Types Packs/Day Years [...] Upcoming Encounters Date Type Department Care Team ([facility] Contact Info) Description 09/25/2025 10:15 AM EST Office Visit [facility] MED & PEDS 505 [place] [address] Markos Mccoy MD [address] [place] [phone] 10/23/2025 10:00 AM EST Office Visit [facility] MED & PEDS 505 [place] [address] Markos Mccoy MD [address] [place] [address] documented as of this encounter Visit Diagnoses Not on filedocumented in this encounter Care Teams Collections Agent Relationship Specialty Start Date End Date Clover Israel MD [address] [place] [address] PCP - General Family Medicine 09/29/16 documented as of this encounter
--- OUTSIDE RECORDS SUMMARY | 2025-09-21 15:51 | XMS_ITS | Encounter Summary ---
Author Organization [employer] Address [address] [facility] 7t [place] [address] Care Team Providers Care Hydrogen Power Plant Manager Name Role Phone Clover Israel MD Primary Care Provider [phone] Reason for Visit * Reason Onset Date Comments Appointment Request 12/03/2022 Encounter Details Date Type Department Care Team ([facility] Contact Info) Description 12/03/2022 Telephone [facility] [address] [place], [place] [phone] Clover Israel MD 505 [place], [place] [phone] Appointment Request Social History Tobacco Use Types Packs/Day Years Used Date Smoking Tobacco: Never Assessed Comments Unknown Sex and Gender Information Value Date Recorded Sex Assigned at Female 09/08/2022 10:16 AM EDT Legal Sex Female 10:16 AM EDT Gender Identity Female 09/08/2022 10:16 AM EDT Sexual Orientation Straight 09/08/2022 10 :16 AM EDT COVID-19 Exposure Response Date Recorded In the last 10 days, have yo u been in contact with someone who was confirmed or suspected to have Coronavirus/COVID-19? No / Unsure 12/01/2022 10:24 AM EST documented as of this encounter Miscellaneous Notes * Telephone Encounter - Shaziatony Stern Narendra - 12/03/2022 12:13 PM EST Tc from Valerie a case manger requesting an appt for patient for a Physical, Valerie states without the physical she cannot get some paperwork that she needs. Patient Registration Specialist try to book appt but provider did not have anything open. If any question please contact valerie at [phone] documented in this encounter Plan of Treatment Upcoming Encounters Date Type Department Care Team (Late st Contact Info) Description 09/25/2025 10:15 AM EST Office Visit [facility] MED & PEDS 505 [place] [address] Markos Mccoy MD 230 [place], [place] [phone] 10/23/2025 10:00 AM EST Office Visit [facility] MED & PEDS 505 [place] [address] Markos Mccoy MD [address] [place] [address] [phone] documented as of this encounter Visit Diagnoses Not on filedocumented in this encounter Care Teams Hydrogen Power Plant Manager Relationship Specialty Start Date End Date Clover Israel MD 505 [place] [address] PCP - General Family Medicine 09/29/16 documented as of this encounter
--- OUTSIDE RECORDS SUMMARY | 2025-09-21 15:51 | XMS_ITS | Encounter Summary ---
Author Organization [employer] Address [address] [facility] [address] 7t [place] [address] Care Team Providers Care Ice Cream Truck Driver Name Role Phone Clover Israel MD Primary Care Provider [phone] Reason for Visit * Reason Onset Date Comments Med Refill 09/18/2025 Encounter Details Date Type Department Care Team (Late st Contact Info) Description 09/18/2025 Refill [facility] MEDICINE 230 [place] [address] Ema Mccormack, BRIGIDA Opioid dependence, uncomplicated (CMS/HCC) ([facility]) Social History Tobacco Use Types Packs/Day Years [...] housing situation today? I have musalibrado olson 06/22/[address] you li ve. Do you have problems with any of the following? None of the above 06/22/2025 Food Insecurity Answer Date Recorded Within the past 12 months, y ou worried that your food would run out before you got money to buy more: Often true 2024 Within the past 12 months,th e food you bought just didn't last and you didn't have enough money to get more: Sometimes True 06/22/2025 Transportation Answer Date Recorded In the past 12 months, has l ack of transportation kept you from medical appts, meetings, work or from getting things needed for daily living? No 03/22/2025 Utilities Answer Date Recorded In the past 12 months, has t he electric, gas, oil or water [employer] threatened to shut off services in your [...] [facility] PED[facility] 505 [place] [address] Markos Mccoy MD 230 [place] [address] 10/23/2025 10:00 AM EST Office Visit [facility] P[facility] 505 [place] [address] Markos Mccoy MD [address] [place] [address] documented as of this encounter Visit Diagnoses Diagnosis Opioid dependence, uncomplicated (CMS/HCC) (HCC) documented in this encounter Additional Health Concerns Assessment Noted Time PHQ-9 Depression Total Score: 21 025 11:11 AM EDT documented as of this encounter Care Teams Ice Cream Truck Driver Relationship Specialty Start Date End Date Clover Israel MD 505 [place] [address] PCP - General Family Medicine 09/29/16 documented as of this encounter
--- OUTSIDE RECORDS SUMMARY | 2025-09-21 15:51 | XMS_ITS | Clinical Summary ---
Author Organization [employer] Address [address] [place] [address] Care Team Providers Care Senior Sales Representative Name Role Phone Clover Israel MD Primary Care Provider [phone] Allergies No known active allergies Medications * This document contains information received from the source organization and may not represent a complete record from that organization. naloxone (Narcan) 4 mg/0.1 mL nasal spray Administer 0.1 mL into affected nostril(s). 020 Active aspirin 81 MG EC tablet Take 1 tablet by mouth Once daily. 022 Active pantoprazole (ProtoNix) 40 MG EC tablet Take 1 tablet (40 mg) by mouth before breakfast. 30 tablet 1 023 Active Additional Information Patient not taking.Reported on 11/10/2023 Respiratory Therapy Supplies (Nebulizer/Tubin g/Mouthpiece) kit To be used with Nebulizer 1 kit 1 023 Active nicotine polacrilex (Nicorette) 2 MG gum CHEW 1 PEICE OF GUM BY MOUTH EVERY HOUR NEEDED FOR NICOTINE CRAVINGS 023 Active loratadine (Claritin) 10 MG tablet TAKE ONE TABLET EVERY MORNING 30 tablet 5 024 Active Mometasone Furoate (Asmanex, 60 Metered Doses,) 220 MCG/ACT aerosol powder Inhale 1 puff 2 times daily. 60 each 11 024 Active albuterol (2.5 MG/3ML) 0.083% nebulizer solution USE ONE AMPULE USING A NEBULIZER THREE TIMES DAILY NEEDED 90 mL 024 Active nicotine (Nicoderm CQ) 14 MG/24HR patch Place 1 patch on the skin 1 (one) time each day at the same time. 42 patch Active nicotine (Nicoderm CQ) 7 MG/24HR patch Place 1 patch on the skin 1 (one) time each day at the same time. 14 patch Active nicotine polacrilex (Commit) 2 MG lozenge Dissolve 1 lozenge (2 mg) in the mouth if needed for smoking cessation. 100 lozenge Active Blood Pressure kit 1 each 2 times daily. Call [facility] if BP readings are > 140/90 1 kit 025 2025 Active lisinopril 10 MG tablet Take 1 tablet by mouth Once per day. Active cholecalciferol (Vitamin D-3) 50 MCG (1999 UT) capsule Take 1 capsule orally daily 30 capsule 11 Active atorvastatin (Lipitor) 40 MG tablet Take 1 tablet (40 mg) by mouth Once per day. 30 tablet 11 025 2025 Active citalopram (CeleXA) 20 MG tablet Take 1 tablet (20 mg) by mouth Once per day. 30 tablet 5 Active Ventolin HFA 108 (90 Base) MCG/ACT inhaler INHALE TWO PUFFS EVERY 6 HOURS NEEDED FOR WHEEZING 18 g 2 Active cyanocobalamin (Vitamin B-12) 250 MCG tablet Take 1 tablet (250 mcg) by mouth Once per day. 90 tablet 3 025 2025 Active cholecalciferol (Vitamin D-3) 50 MCG (1999 UT) capsule Take 1 capsule (50 mcg) by mouth Once per day. 90 capsule 3 Active Buprenorphine HCl-Naloxone HCl (Suboxone) 8-2 MG SL filmIndications: Opioid dependence, uncomplicated (CMS/HCC) (HCC) Place 2 Film under the tongue Once per day for 28 days. Do not start before September 25, 2025. 56 Film 025 2024 Active Buprenorphine HCl-Naloxone HCl (Suboxone) 8-2 MG SL filmIndications: Opioid dependence, uncomplicated (CMS/HCC) (HCC) Place 2 Film under the tongue Once per day for 28 days. Do not start before August 28, 2025. 56 Film 025 2024 Discontinued(R eorder (will not trigger notification to Pharmacy)) Hospital, Clinic, or Other Facility Administered Medication Ordered Dose Route Frequency Start Date End Date Status aspirin chewable tablet 324 mgIndications:Chest pain, unspecified type 324 mg PO Once 02/01/2025 Active Active Problems Problem Noted Date Diagnosed Date Elevated blood pressure read ing without diagnosis of hypertension 06/22/2025 Tobacco dependence 02/01/2025 NSTEMI (non-ST elevated myocardial infarction) 0 01/13/2024 Takotsubo cardiomyopathy 01/13/2024 Moderate recurrent major depression (CMS/HCC) Gastroesophageal reflux disease 05/06/2012 Vitamin D deficiency 05/06/2012 Continuous opioid dependence (CMS/HCC) 2 Acute hepatitis C 02/26/2012 Anxiety state 02/26/2012 Depressive disorder 02/26/2012 Pure hypercholesterolemia 02/26/2012 Encounters Date Type Department Care Team Description 09/18/[address] [facility] [address] [place] [address] Ema Mccormack RN Opioid dependence, uncomplicated ([facility]/HCC) (HCC) 09/14/[address] [facility] [address] [place] [address] Clover Israel MD 08/22/[address] [facility] [address] [place] [address] Ema Mccormack RN Opioid dependence, uncomplicated ([facility]/HCC) (HCC) 08/09/2025 Orders Only [facility] [address] [place] [address] Clover Israel MD 07/31/2025 1:45 PM EDT Office Visit [facility] [address] [place] [address] Markos Mccoy MD Opioid dependence, uncomplicated ([facility]/HCC) (Primary Dx) 07/31/2025 Travel 07/24/[address] [facility] [address] [place] [address] Ema Mccormack RN Opioid dependence, uncomplicated (CMS/HCC) 07/03/2025 1:00 PM EDT Office Visit [facility] [address] [place] [address] Markos Mccoy MD Opioid dependence with uncomplicated intoxication (CMS/HCC) (Primary Dx); Opioid dependence, uncomplicated (CMS/HCC) 07/03/2025 Travel 06/28/[address] [facility] [address] [place] [phone] Ema Mccormack RN 06/22/2025 10:15 AM EDT Office Visit [facility] [address] [place] [address] Clover Israel MD Vitamin D deficiency (Primary Dx); Pure hypercholesterolemia; Continuous opioid dependence (CMS/HCC); Takotsubo cardiomyopathy 06/22/[address] [facility] [address] [place] [phone] Clover Israel MD Care Coordination (CHW outreach for SDOH housing search-referral completed ) 06/22/2025 Travel from Last 3 Months Immunizations Immunization Administration Dates Next Due Influenza High-dose Quadriva lent Preservative Free 09/03/2023 Influenza injectable quadriv alent IIV4 with preservative 09/30/2019,09/06/2015 Influenza injectable quadriv alent preservative free 08/11/2022,10/13/2018,09/26/2018,06/09 Influenza, IIV3, injectable 09/06/2014 Influenza, Split (incl. julio fied surface antigen) 07/20/2013,07/20/2012 Moderna Covid-19 Vaccine 12+ 04/18/2021,03/21/20 21 Moderna Covid-19 Vaccine 6+ Bivalent 03/24/2023 Pneumococcal Conjugate PCV 20 11/13/2023 Pneumococcal Polysaccharide PPSV23 09/06/2015 RSV Bivalent 11/13/2023 TD (adult), 2 Lf tetanus tox oid, preservative free, adsorbed 06/18/2007 Tdap 06/18/2018 Zoster, Recombinant 10/13/2018,09/26/2018 Social History Tobacco Use Types Packs/Day Years Used Date Smoking Tobacco: Every Day Cigarettes Smokeless Tobacco: Never Tobacco Cessation:Ready to Q uit: Yes; Counseling Given: Yes Comments:Smokes an average of 2 cig a day. Used to smoke 1 ppd until last year. Depression Answer Date Recorded Patient Health Questionnaire-9 Score 21 03/22/2025 Patient Health Questionnaire-9 Score 21 03/22/2025 Last PHQ-9: Questionnaire Data Not on file 0 03/22/2025 Housing Stability Answer Date Recorded What is your housing situation today? I have musa olson 06/22/[address] you [...] Orientation Straight 09/08/2022 10 :16 AM EDT Last Filed Vital Signs Vital Sign Reading Time Taken Comments Blood Pressure 150/80 06/22/2025 10:05 AM EDT Pulse 76 06/22/2025 10:05 AM EDT Temperature 36.5 C (97.7 F) 06/22/2025 10:05 AM EDT Respiratory Rate 16 06/22/2025 10:05 AM EDT Oxygen Saturation 98% 03/22/2025 10:36 AM EDT Inhaled Oxygen Concentration - - Weight 52.6 kg (116 lb) 06/22/2025 10:05 AM EDT Height 160 cm (5' 3 ) 03/22/2025 10:36 AM EDT Body Mass Index 20.55 03/22/2025 10:36 AM EDT Plan of Treatment Upcoming Encounters Date Type Department Care Team (Late st Contact Info) Description 09/25/2025 10:15 AM EST Office Visit [facility] [address] [place] [address] Markos Mccoy MD [address] [place], [place] [phone] 10/23/2025 10:00 AM EST Office Visit [facility] [address] [place] [address] Markos Mccoy MD [address] [place], [place] [phone] Health Maintenance Due Date Last Done Comments CT Colonography 1955 Colonoscopy 1955 Colorectal Cancer Screening 1955 FIT DNA/Cologuard 1957 FIT 1955 FOBT 1955 Sigmoidoscopy 1955 Hepatitis A Vaccines (1 of 2 - Risk 2-dose series) 1976 Hepatitis B Vaccines (1 of 3 - Risk 3-dose series) 2017 Zoster Vaccines (2 of 2) 12/08/2018 10/13/2018, 09/09 COVID-19 Vaccine ( season) 2025 03/24/2023, 09/13/2022, 04/18/2021, Additional history exists Influenza Vaccine (#1) 2025 , 08/11/2022, 09/30/2019, Additional history exists Depression Monitoring 09/22/2025 03/22/2025, 025 Alcohol/Substance Use Screening 06/22/2026 06/22/2025 SDOH Screening 06/22/2026 06/22/2025 Tobacco Screening 06/22/2026 06/22/2025 Mammogram 08/09/2027 08/09/2025, 07/0 01/2024, 09/15/2023, Additional history exists DTaP/Tdap/Td Vaccines (2 - Td or Tdap) 06/18/2028 06/18/2018, 06/18/2007 Lipid Panel 03/22/2030 03/22/2025, 05/0 04/2024, 09/03/2023, Additional history exists Pneumococcal Vaccine: 50+ Years Completed 11/13/2023, 09/06/2015 RSV Patients and Patients Aged 60 years or older Completed 11/13/2023 HIB Vaccines Aged Out No longer eligi ble based on patient's age to complete this topic HPV Vaccines Aged Out No longer eligi ble based on patient's age to complete this topic IPV Vaccines Aged Out No longer eligi ble based on patient's age to complete this topic Meningococcal B Vaccine Aged Out No l onger eligible based on patient's age to complete this topic Meningococcal Vaccine Aged Out No haylee wilma eligible based on patient's age to complete this topic RSV under 20 months Aged Out No longe r eligible based on patient's age to complete this topic Rotavirus Vaccines Aged Out No longer eligible based on patient's age to complete this topic Procedures Procedure Name Priority Date/Time Associated Diagnosis Comments BD DEXA AXIAL Routine 08/09/2025 8:43 AM EDT BI MAMMOGRAM SCREENING TOMOSYNTHESIS BILATERAL Routine 08/09/2025 7:58 AM EDT Breast cancer screening by mammogram POCT ELEANOR-14 URINE DRUG SCREEN Routine 07/31/2025 1:37 PM EDT Opioid dependence, uncomplicated (CMS/HCC) LIPID PANEL, STANDARD Routine 03/22/2025 11:17 AM EDT Takotsubo cardiomyopathy Continuous opioid dependence (CMS/HCC) Pure hypercholesterolemia Screening for colon cancer Routine general medical examination at a health care facility from Last 3 Months or Most Recently Relevant to Health Maintenance Results * BD DEXA Axial (08/09/2025 8:43 AM EDT) Anatomical Region Laterality Modality Body Radiographic Rosaline ging 08/09/2025 8:43 AM EDT Narrative 08/09/2025 9:13 AM EDT [facility] [address] [place] [address] Dr. [place], [place] [address] Mammography Report Signed Patient: Flores Shaffer MR#: [id number] : 1955 Acct:[id number] Age/Sex: 69 / F ADM Date: 08/09/25 Loc: GOVIND Attending Dr: Clover Israel MD Ordering Physician: Clover sIrael MD Results: Date of Service: 08/09/25 Follow Up: Procedure(s): XR DEXA axial skeleton Accession Number(s): [id number] cc: Clover Israel MD Reason For Exam: VITAMIN D DEFICIANCY EXAMINATION: DXA BONE DENSITY AXIAL HISTORY: VITAMIN D DEFICIENCY TECHNIQUE: ARX Dual energy absorptiometry (DEXA) of the lumbar spine, total left hip, and femoral neck was performed. COMPARISON: Comparison is made with the prior examination dated 07/08/2018. FINDINGS: The bone mineral density of the lumbar spine is 1.168 g/cm2, corresponding to a T-score of -0.1, and a Z-score of 2.2. This is indicative of normal bone mineral density. This represents a BMD change of -2.0% compared to the prior exam. This is not statistically significant. The bone mineral density of the left total hip is 0.808 g/cm2, corresponding to a T-score of -1.6, and a Z-score of 0.2. This is indicative of osteopenia. This represents a BMD change of 3.2% compared to the prior exam. This is not statistically significant. The bone mineral density of the left femoral neck is 0.838 g/cm2, corresponding to a T-score of -1.4, and a Z-score of 0.6. This is indicative of osteopenia. This represents a BMD change of 6.5% compared to the prior exam. FRACTURE RISK: The FRAX index suggests a ten year probability of major osteoporotic fracture of 4.3%, and of hip fracture 0.9%. MM/XR DEXA axial skeleton IMPRESSION: Based on bone mineral density, and according to World Health Organization (WHO) criteria, the diagnosis is consistent with osteopenia. Statistically, 68% of repeat scans fall within 1 SD (+/- 0.010 g/cm2 for AP spine L1-L4) and 1 SD (+/- 0.012 g/cm2 for femur total) FRAX is a trademark of the [employer] [place] [facility] Met[employer] Disease, a World Health Organization (WHO) Collaborating Center. Electronically signed by: Fabián Sr MD 08/09/2025 09:10 AM EDT RP Dictated By: Fabián Sr MD Signed By: <Electronically signed by Fabián rS MD in OV> 08/09/2510 DD/ 2 TD/TT: 08/09/25839 Detective Bureau Chief: Procedure Note Donotuseinterpreter, Image - 08/09/[facility] [address] [place] [address] Mammography Report Signed Patient: Amy ShafferR#: [id number] : 1955cct:[id number] Age/Sex: 69 / FADM Date: 08/09/25 Loc: MAMMO Attending Dr: Clover Israel MD Ordering Physician: Clover Israel MDResults: Date of Service: 08/09/25Follow Up: Procedure(s): XR DEXA axial skeleton Accession Number(s): [id number] cc: Clover Israel MD Reason For Exam: VITAMIN D DEFICIANCY EXAMINATION: DXA BONE DENSITY AXIAL HISTORY: VITAMIN D DEFICIENCY TECHNIQUE: ARX Dual energy absorptiometry (DEXA) of the lumbar spine, total left hip, and femoral neck was performed. COMPARISON: Comparison is made with the prior examination dated 07/08/2018. FINDINGS: The bone mineral density of the lumbar spine is 1.168 g/cm2, corresponding to a T-score of -0.1, and a Z-score of 2.2. This is indicative of normal bone mineral density. This represents a BMD change of -2.0% compared to the prior exam. This is not statistically significant. The bone mineral density of the left total hip is 0.808 g/cm2, corresponding to a T-score of -1.6, and a Z-score of 0.2. This is indicative of osteopenia. This represents a BMD change of 3.2% compared to the prior exam. This is not statistically significant. The bone mineral density of the left femoral neck is 0.838 g/cm2, corresponding to a T-score of -1.4, and a Z-score of 0.6. This is indicative of osteopenia. This represents a BMD change of 6.5% compared to the prior exam. FRACTURE RISK: The FRAX index suggests a ten year probability of major osteoporotic fracture of 4.3%, and of hip fracture 0.9%. MM/XR DEXA axial skeleton IMPRESSION: Based on bone mineral density, and according to World Health Organization (WHO) criteria, the diagnosis is consistent with osteopenia. Statistically, 68% of repeat scans fall within 1 SD (+/- 0.010 g/cm2 for AP spine L1-L4) and 1 SD (+/- 0.012 g/cm2 for femur total) FRAX is a trademark of the [employer] [place] [facility] Metabolic Bone Disease, a World Health Organization (WHO) Collaborating Center. Electronically signed by: Fabián Sr MD 08/09/2025 09:10 AM EDT Dictated By: Fabián Sr MD Signed By: <Electronically signed by Fabián Sr MD in OV> 08/09/2510 DD/ TD/TT: 08/09/25839 Detective Bureau Chief: us Clover Israel MD IMG DXA PROCEDURES Final Resu lt * BI Mammogram Screening Tomosynthesis Bilateral (08/09/2025 7:58 AM EDT) Anatomical Region Laterality Modality Breast Bilateral Mammography 08/09/2025 7:58 AM EDT Narrative 08/14/2025 5:46 PM EDT [address] [place], [place] [address] Mammography Report Signed Patient: Flores Shaffer MR#: [id number] : 1955 Acct:[id number] Age/Sex: 69 / F ADM Date: 08/09/25 Loc: HO.MAMMO Attending Dr: Clover Israel MD Ordering Physician: Clover Israel MD Results: 1Ne gative Date of Service: 08/09/25 Follow Up: 1 Year From Orig inal Mammogram Procedure(s): MM tomosynthesis screening BI Accession Number(s): [id number] cc: Clover Israel MD Reason For Exam: breast cancer screen EXAMINATION: MM SCREENING DIGITAL BREAST TOMOSYNTHESIS, BILATERAL CLINICAL INFORMATION: Screening. Asymptomatic. COMPARISON: Mammography: Comparison is made with available priors TECHNIQUE: Digital breast mammography with tomosynthesis is performed in both the craniocaudal and mediolateral oblique views along with computer-aided detection (CAD). FINDINGS: There are scattered areas of fibroglandular density. There are no significant masses, abnormal calcifications, or other abnormalities. MM/MM tomosynthesis screening BI IMPRESSION: No mammographic evidence of malignancy. ASSESSMENT: BI-RADS Category 1: Negative RECOMMENDATION: Routine annual mammography screening. 1 year F/U This examination should not preclude the clinical evaluation of a suspicious palpable abnormality. This patient's information was entered into a reminder system with a target due date for their next mammogram. Electronically signed by: Teresa Tapia DO 08/14/2025 05:43 PM EDT Dictated By: Teresa Tapia DO Signed By: <Electronically signed by Teresa Tapia DO in OV> 08/14/25 1743 DD/ 0758 TD/TT: 08/09/25 0808 Detective Bureau Chief: Procedure Note Donotuseinterpreter, Image - 08/14/[address] [place] [address] Mammography Report Signed Patient: Amy ShafferR#: M [id number] : 8Acct:[id number] Age/Sex: 69 / FADM Date: 08/09/25 Loc: HO.MAMMO Attending Dr: Clover Israel MD Ordering Physician: Clover Israel MDResults: 1Ne gative Date of Service: 08/09/25Follow Up: 1 Year From Orig ina Mammogram Procedure(s): MM tomosynthesis screening BI Accession Number(s): [id number] cc: Clover Israel MD Reason For Exam: breast cancer screen EXAMINATION: MM SCREENING DIGITAL BREAST TOMOSYNTHESIS, BILATERAL CLINICAL INFORMATION: Screening. Asymptomatic. COMPARISON: Mammography: Comparison is made with available priors TECHNIQUE: Digital breast mammography with tomosynthesis is performed in both the craniocaudal and mediolateral oblique views along with computer-aided detection (CAD). FINDINGS: There are scattered areas of fibroglandular density. There are no significant masses, abnormal calcifications, or other abnormalities. MM/MM tomosynthesis screening BI IMPRESSION: No mammographic evidence of malignancy. ASSESSMENT: BI-RADS Category 1: Negative RECOMMENDATION: Routine annual mammography screening. 1 year F/U This examination should not preclude the clinical evaluation of a suspicious palpable abnormality. This patient's information was entered into a reminder system with a target due date for their next mammogram. Electronically signed by: Teresa Tapia DO 08/14/2025 05:43 PM EDT Dictated By: Teresa Tapia DO Signed By: <Electronically signed by Teresa Tapia DO in OV> 08/14/25 1743 DD/ 0758 TD/TT: 08/09/25 0808 Detective Bureau Chief: us Clover Israel MD IM BI PROCEDURES Final Resul t * (ABNORMAL) POCT ELEANOR-14 Urine Drug Screen (07/31/2025 1:37 PM EDT) THC Positive(A) Negative Cocaine Screen, Urine Negative Negative Opiate Screen, Urine Negative Negative Methamphetamine Screen Urine Negative Negative Amphetamine Screen, Urine Negative Negative Benzodiazepines Screen, Urine Negative Negative Barbiturate Screen, Urine Negative Negative Methadone Screen, Urine Negative Negative Buprenophine Screen, Urine Positive(A) Negative TCA, Urine Negative Negative MDMA Urine Negative Negative ng/mL Oxycodone Screen, Urine Negative Negative Phencyclidine (PCP), Urine Negative Negative Fentanyl, Urine Negative Negative Urine Urine specimen obtained by clean catch procedure / Unknown 07/31/2025 1:37 PM EDT us Markos Mccoy MD POINT OF CARE TEST ENTER/EDIT OR DERABLES Final Result * Lipid Panel, Standard (03/22/2025 11:17 AM EDT) Triglycerides 89 <150 mg/dL [facility] Comment:Desirable Triglyceri de: less than 150 mg/dLBorderline High Triglyceride 150-199 mg/dLHigh Triglyceride: 200-499 mg/dLVery High Triglyceride: greater than or equal to 5OO mg/dL Cholesterol 157 <200 mg/dL [facility] Comment:Desirable Cholestero l: less than 200 mg/dLBorderline High Cholesterol: 200-239 mg/dLHigh Cholesterol: greater than 239 mg/dL LDL Cholesterol Calculated 82 <100 mg/dL [facility] Comment:Desirable LDL: less than 100 mg/dLNear Optimal/Above Optimal LDL: 110- 129 mg/dLBorderline High LDL: 130-159 mg/dLHigh LDL: 160-189 mg/dLVery High LDL: greater than or equal to 190 mg/dL HDL Cholesterol 58 >40 mg/dL [facility] Comment:Desirable HDL: great er than 40 mg/dL Note: This HDL assay may give artificially low results in patients with liver disease. Blood Venous blood specimen / Unknown 03/22/2025 11:17 AM EDT 03/22/2025 2:49 PM EDT us Clover Israel MD LAB BLOOD ORDERABLES Final Re sult [facility] [address] [place] [address] [phone] from Last 3 Months or Most Recently Relevant to Health Maintenance Insurance [facility] JAIL OPTIONS (HMO D-SNP) [facility] STANDARD Care Teams Senior Sales Representative Relationship Specialty Start Date End Date Clover Israel MD [address] [place] [phone] PCP - General Family Medicine 09/29/16
--- OUTSIDE RECORDS SUMMARY | 2025-09-21 15:51 | XMS_ITS | Clinical Summary ---
Author Organization [facility] ity Address [address] [place] [address] Care Team Providers Care Groundskeeping Maintenance Worker Name Role Phone Teddy Garsia MD Primary Care Provider Social History Tobacco Use Types Packs/Day Years Used Date Smoking Tobacco: Never Assessed Comments Unknown Sex and Gender Information Value Date Recorded Sex Assigned at Not on file Legal Sex Female 2:57 AM EST Gender Identity Not on file Sexual Orientation Not on file Plan of Treatment Health Maintenance Due Date Last Done Comments Breast Cancer Screening 1955 DTaP,Tdap,and Td Vaccines (1 - Tdap) 1976 Pneumococcal Vaccine: 50+ Ye ars (1 of 1 - PCV) 2007 Zoster Vaccines (1 of 2) 2007 Depression Screening 11/09/2024 COVID-19 Vaccine (1 - 2024-2 6 season) 2025 Influenza Vaccine (#1) 2025 RSV Immunization Adult Patie nts (1 - 1-dose 75+ series) 2032 HIB Vaccines Aged Out No longer eligi ble based on patient's age to complete this topic HPV Vaccines Aged Out No longer eligi ble based on patient's age to complete this topic Hepatitis A Vaccines Aged Out No long er eligible based on patient's age to complete this topic Hepatitis B Vaccines Aged Out No long er eligible based on patient's age to complete this topic IPV Vaccines Aged Out No longer eligi ble based on patient's age to complete this topic MMR Vaccines Aged Out No longer eligi ble based on patient's age to complete this topic Meningococcal ACWY Vaccine Aged Out N o longer eligible based on patient's age to complete this topic Meningococcal B Vaccine Aged Out No l onger eligible based on patient's age to complete this topic RSV Immunization Patients Un rian 20 months Aged Out No longer eligible b ased on patient's age to complete this topic Varicella Vaccines Aged Out No longer eligible based on patient's age to complete this topic Care Teams Groundskeeping Maintenance Worker Relationship Specialty Start Date End Date Teddy Garsia MD [address] [place] [address] PCP - General Internal Medicine 07/29/16
--- OUTSIDE RECORDS SUMMARY | 2025-09-21 15:51 | XMS_ITS | Encounter Summary ---
Author Organization [employer] Address [address] [facility] [address] [place] [address] Care Team Providers Care Bicycle Repairman Name Role Phone Clover Israel MD Primary Care Provider [phone] Encounter Details Date Type Department Care Team ([facility] st Contact Info) Description 03/14/2025 Telephone [facility] [address] [place] [address] Clover Israel MD [address] [place] [address] Social History Tobacco Use Types Packs/Day Years [...] your housing situation today? I have musa wesley 08/25/[address] you li [...] encounter Miscellaneous Notes * Telephone Encounter - Tran Martinez - 03/14/2025 12:19 PM EDT Tc from Nga at [facility] calling to report pt blood pressure at [employer] office today was high. Ngareported pt does not drink medication as she should. Nga is requesting pt PCP to set up medication in bubble pack. If any questions contact Nga at [phone] documented in this encounter Plan of Treatment Upcoming Encounters Date Type Department Care Team (Late st Contact Info) Description 09/25/2025 10:15 AM EST Office Visit [facility] [address] [place] [address] Markos Mccoy MD [address] [place], [place] [phone] 10/23/2025 10:00 AM EST Office Visit [facility] [address] [place] [address] Markos Mccoy MD [address] [place], [place] [phone] documented as of this encounter Visit Diagnoses Not on filedocumented in this encounter Additional Health Concerns Assessment Noted Time PHQ-9 Depression Total Score: 2 01/13/20 24 11:32 AM EST documented as of this encounter Care Teams Bicycle Repairman Relationship Specialty Start Date End Date Clover Israel MD [address] [place] [address] PCP - General Family Medicine 09/29/16 documented as of this encounter
--- OUTSIDE RECORDS SUMMARY | 2025-09-21 15:51 | XMS_ITS | Encounter Summary ---
Author Organization [employer] Address [address] [facility] [address] [place] [address] Care Team Providers Care Divorce Attorney Name Role Phone Clover Israel MD Primary Care Provider [phone] Reason for Visit * Reason Onset Date Comments FYI 05/24/2024 Encounter Details Date Type Department Care Team ([facility] st Contact Info) Description 05/24/2024 Telephone [facility] [address] [place], [place] [phone] Clover Israel MD [address] [place], [place] [phone] FYI Social History Tobacco Use Types Packs/Day Years [...] encounter Miscellaneous Notes * Telephone Encounter - Alfonso Sharpe - 05/24/2024 12:02 PM EDT Tc from Shea, Nurse practitioner with [facility], wants to inform pcp pt is not consistently refilling or taking her medication. The only medication pt is taking consistently is the suboxone. If any questions for Shea please contact her at [phone] ext [phone]. documented in this encounter Plan of Treatment Upcoming Encounters Date Type Department Care Team (Late st Contact Info) Description 09/25/2025 10:15 AM EST Office Visit [facility] [address] [place] [address] Markos Mccoy MD [address] [place] [phone] 10/23/2025 10:00 AM EST Office Visit [facility] [address] [place] [address] Markos Mccoy MD [address] [place] [phone] documented as of this encounter Visit Diagnoses Not on filedocumented in this encounter Additional Health Concerns Assessment Noted Time PHQ-9 Depression Total Score: 2 01/13/20 24 11:32 AM EST documented as of this encounter Care Teams Divorce Attorney Relationship Specialty Start Date End Date Clover Israel MD [address] [place] [id number] PCP - General Family Medicine 09/29/16 documented as of this encounter
[2025-09-21 16:14] VITALS: BP 163/76; PULSE 69; RESP 17; TEMP 37; O2SAT 96
== END 2025-09-21 16:14 | disposition home or self-care (01) ==
PROVIDERS: Emergency Provider Emergency Medicine; PCP Pediatrics
DX: R07.89 Other chest pain (principal); R00.1 Bradycardia, unspecified; I49.8 Other specified cardiac arrhythmias; Z79.899 Other long term (current) drug therapy
CPT/HCPCS: 36415; 71046; 80048; 80076; 83690; 84484; 85025; 85610; 93005; 99284

== ENCOUNTER → 2025-09-21 11:56 | Outpatient (BNV) | payer OTHER, SELFPAY | PROVIDERS: Emergency Provider Emergency Medicine; PCP Pediatrics; Visit Provider Internal Medicine Cardiovascular Disease | DX: R00.1 Bradycardia, unspecified (principal) | CPT/HCPCS: 93010 ==